=== PATIENT | male | born 2000 | race Caucasian/White ===

== ENCOUNTER 2024-03-03 15:27 | Emergency (ER) | payer BC, SELFPAY ==
[2024-03-03] MEDS ORDERED: LIDOCAINE 2% MPF 5 ML VIAL ONE (15:51)
[2024-03-03] MEDS ORDERED: LIDOCAINE 2% W/EPI 1:200,000 MPF 20 ML VIAL IM ONE (15:53)
[2024-03-03] MEDS ORDERED: MORPHINE 4 MG/ML SYR ONE (16:44)
--- NOTE | 2024-03-03 17:17 | RAD REPORT ---
EXAM DESCRIPTION: RAD - Forearm Right - 03/03/2024 4:46 pm CLINICAL HISTORY: injury, laceration COMPARISON: No comparisons TECHNIQUE: Right forearm, 2 views. FINDINGS: No fracture is identified. There is no dislocation or periosteal reaction noted. No foreign body or other soft tissue abnormality. Soft tissue irregularity along the dorsum of the proximal to mid forearm. IMPRESSION: Soft tissue irregularities suggesting laceration along the dorsum of the proximal to mid forearm. No acute osseous abnormality.
--- NOTE | 2024-03-03 17:50 | ER ---
Nurse's Notes [facility] Name: Giorgio Bello Age: 23 yrs Sex: Male : 2000 Arrival Date: 03/03/2024 Time: 15:27 Bed 18 Private MD: Diagnosis: Laceration without foreign body of right forearm Presentation: 03/03 15:22 Chief complaint: Chief complaint: EMS states: LACERATION TO RIGHT ARM AFTER CATCHING IT db ON BARBED WIRE WHILE WORKING AT THE [employer]. GIVEN 1 GM IV ACETAMINOPHEN. 15:22 Coronavirus screen: Client denies travel out of the [place] in the last 14 days. At this db time, the client does not indicate any symptoms associated with coronavirus-19. Ebola Screen: Patient negative for fever greater than or equal to 101.5 degrees Fahrenheit, and additional compatible Ebola Virus Disease symptoms Patient denies exposure to infectious person. Patient denies travel to an Ebola-affected area in the 21 days before illness onset. No symptoms or risks identified at this time. Initial Sepsis Screen: Does the patient meet any 2 criteria? No. Patient's initial sepsis screen is negative. Does the patient have a suspected source of infection? No. Patient's initial sepsis screen is negative. Risk Assessment: Do you want to hurt yourself or someone else? Patient reports no desire to harm self or others. Onset of symptoms was March 03, 2024. Care prior to arrival: IV initiated. 18 GA, in the left antecubital area, Glucose check: 132. 15:22 Method Of Arrival: EMS: [facility] db 15:22 Acuity: JAIRO 3 db Triage Assessment: 15:22 Pain: Complains of pain in right arm. Neuro: Level of Consciousness is awake, alert, db obeys commands, Oriented to person, place, time, situation. Respiratory: Airway is patent Respiratory effort is even, unlabored, Respiratory pattern is regular, symmetrical. Injury Description: Laceration sustained to right arm. 15:44 General: Appears in no apparent distress. comfortable, Behavior is calm, cooperative. db Historical: - Allergies: 15:44 Codeine; db 15:44 PENICILLINS; db - PMHx: 15:44 None; db - Immunization history:: Adult Immunizations unknown. - Infectious Disease History:: Denies. - Social history:: Smoking status: Reported history of juuling and/or vaping. Screenin:01 [facility] ED Fall Risk Assessment (Adult) History of falling in the last 3 months, db including since admission No falls in past 3 months (0 pts) Confusion or Disorientation No (0 pts) Intoxicated or Sedated No (0 pts) Impaired Gait No (0 pts) Mobility Assist Device Used No (0 pt) Altered Elimination No (0 pt) Score/Fall Risk Level 0 - 2 = Low Risk Oriented to surroundings, Maintained a safe environment. Abuse screen: Denies threats or abuse. Denies injuries from another. Nutritional screening: No deficits noted. Tuberculosis screening: No symptoms or risk factors identified. Assessment: 16:00 Reassessment: Patient appears in no apparent distress at this time. Patient and/or db family updated on plan of care and expected duration. Pain level reassessed. Patient is alert, oriented x 3, equal unlabored respirations, skin warm/dry/pink. VISITORS AT PATIENT BEDSIDE. General: Appears in no apparent distress. comfortable, Behavior is calm, cooperative. Pain: Complains of pain in right arm. Neuro: Level of Consciousness is awake, alert, obeys commands, Oriented to person, place, time, situation. Respiratory: Airway is patent Respiratory effort is even, unlabored, Respiratory pattern is regular, symmetrical. 18:18 Reassessment: Patient appears in no apparent distress at this time. Patient and/or db family updated on plan of care and expected duration. Pain level reassessed. Patient is alert, oriented x 3, equal unlabored respirations, skin warm/dry/pink. Reassessment: Patient states feeling better. Patient states symptoms have improved. General: Appears in no apparent distress. comfortable, Behavior is calm, cooperative. Vital Signs: 15:22 BP 114 / 66; Pulse 72; Resp 16; Temp 98.8(O); Pulse Ox 96% ; Weight 106.59 kg; Height 5 db ft. 10 in. ; 16:00 BP 123 / 59; Pulse 78; Resp 16; Pulse Ox 100% on R/A; db 17:30 BP 113 / 57; Pulse 77; Resp 16; Pulse Ox 98% on R/A; db 15:22 Body Mass Index 33.72 (106.59 kg, 177.8 cm) ED Course: 15:22 Arm band placed on Patient placed in an exam room. db 15:31 Patient arrived in ED. db 15:35 Malik Jaime PA is PHCP. cp 15:35 Malik Parkinson MD is Attending Physician. cp 15:42 Rhianna Huitron, BIPIN is Primary Nurse. db 15:44 Triage completed. db 16:10 Maintain EMS IV. Dressing intact. Good blood return noted. Site clean \T\ dry. Gauge \T\ db site: 20 G LAC. 16:48 XRAY Forearm RIGHT In Process Unspecified. EDMS 18:17 Patient has correct armband on for positive identification. Bed in low position. Call db light in reach. Side rails up X 1. Provided Education on: DISCHARGE AND FOLLOWUP. Pulse ox on. NIBP on. Warm blanket given. Pillow given. 18:17 No provider procedures requiring assistance completed. IV discontinued, intact, db bleeding controlled, No redness/swelling at site. 18:18 Dressings: Kerlix non-adherent dressing x 1 right arm x 2 right arm 4X4s. Irrigation on db right arm. Administered Medications: 16:00 Drug: Lidocaine Infiltration (2 %) 10 ml 5 ml Infiltration once; with epinephrine db {Note: GIVEN BY PROVIDER.} Volume: 5 ml; Route: Infiltration; 18:16 Follow up: Response: No adverse reaction db 16:48 Drug: morphine IVP or IV 4 mg IVP once over 4 mins Route: IVP; Infused Over: 4 mins; db Site: left antecubital; 18:16 Follow up: Response: No adverse reaction db 17:55 Drug: Cephalexin PO 500 mg PO once Route: PO; db 18:16 Follow up: Response: No adverse reaction db 17:55 Drug: HYDROcodone-acetaminophen PO 5 mg-325 mg 1 tabs PO once Route: PO; db 18:16 Follow up: Response: No adverse reaction db 17:55 Drug: Ibuprofen PO 800 mg PO once Route: PO; db 18:16 Follow up: Response: No adverse reaction db Medication: 18:17 VIS not applicable for this client. db Outcome: 17:49 Discharge ordered by . cp 18:17 Discharged to home ambulatory, with family, db 18:17 Condition: stable 18:17 Discharge instructions given to patient, Instructed on discharge instructions, follow up and referral plans. Prescriptions given X 3, 18:19 Patient left the ED. db Signatures: [facility] Malik Jaime PA PA cp Benton, Danielle, RN RN db Corrections: (The following items were deleted from the chart) 15:44 15:22 Chief complaint: db db
--- NOTE | 2024-03-03 17:50 | EDPHYS ---
Physician Documentation [facility] Name: Giorgio Bello Age: 23 yrs Sex: Male : 2000 Arrival Date: 03/03/2024 Time: 15:27 Bed 18 Private MD: ED Physician Malik Parkinson HPI: 03/03 15:45 This 23 yrs old Male presents to ER via EMS with complaints of Laceration To Arm. cp 15:45 The patient has a laceration occurred at work, and slip and fall with right forearm cp falling into razor wire. 15:45 The laceration(s) is(are) located on the right forearm. Onset: The symptoms/episode cp began/occurred just prior to arrival. Associated signs and symptoms: The patient has no apparent associated signs or symptoms. Historical: - Allergies: 15:44 Codeine; db 15:44 PENICILLINS; db - PMHx: 15:44 None; db - Immunization history:: Adult Immunizations unknown. - Infectious Disease History:: Denies. - Social history:: Smoking status: Reported history of juuling and/or vaping. ROS: 15:50 MS/extremity: Positive for laceration, of the right forearm, Negative for paresthesias, cp 15:50 Constitutional: Negative for body aches, chills, fever, cp 15:50 Neck: Negative for pain with movement, pain at rest, 15:50 Cardiovascular: Negative for chest pain, 15:50 Respiratory: Negative for cough, shortness of breath, wheezing, 15:50 Abdomen/GI: Negative for abdominal pain, vomiting, diarrhea, constipation, 15:50 Neuro: Negative for altered mental status, headache, weakness, 15:50 All other systems are negative, Exam: 15:55 Constitutional: The patient appears in no acute distress, alert, awake, non-toxic, well cp developed, well nourished, uncomfortable, 15:55 Head/Face: Normocephalic, atraumatic. cp 15:55 Chest/axilla: Inspection: normal, 15:55 Cardiovascular: Rate: normal, Rhythm: regular, Pulses: Pulses are 2+ in right radial artery. 15:55 Respiratory: the patient does not display signs of respiratory distress, Respirations: normal, no use of accessory muscles, no retractions, labored breathing, is not present, Breath sounds: are clear throughout, no decreased breath sounds, no stridor, no wheezing, 15:55 Abdomen/GI: Inspection: abdomen appears normal, 15:55 Musculoskeletal/extremity: Extremities: grossly normal except: noted in the right forearm: laceration, pain, tenderness, 15:55 Neuro: Orientation: to person, place \T\ time. Mentation: is normal, Vital Signs: 15:22 BP 114 / 66; Pulse 72; Resp 16; Temp 98.8(O); Pulse Ox 96% ; Weight 106.59 kg; Height 5 db ft. 10 in. ; 16:00 BP 123 / 59; Pulse 78; Resp 16; Pulse Ox 100% on R/A; db 17:30 BP 113 / 57; Pulse 77; Resp 16; Pulse Ox 98% on R/A; db 15:22 Body Mass Index 33.72 (106.59 kg, 177.8 cm) db Laceration: 17:46 Wound Repair of 14cm ( 5.5in ) subcutaneous laceration to dorsum of right forearm. cp Linear shaped.. Distal neuro/vascular/tendon intact. Anesthesia: Wound infiltrated with 18 mls of 2% lidocaine. Wound prep: Moderate cleansing by me, Wound irrigation by me. Skin closed with 24 1-0 Albin using staple gun. Fascia closed with 1 4-0 Vicryl using running sutures. Dressed with Bacitracin, 4x4's. Patient tolerated well. MDM: 15:35 Patient medically screened. cp 16:00 Differential diagnosis: superficial laceration, tendon injury, vascular injury. 17:48 Data reviewed: vital signs, nurses notes, radiologic studies, plain films, and as a result, I will discharge patient. 17:48 I considered the following discharge prescriptions or medication management in the emergency department Medications were administered in the Emergency Department. See MAR. Counseling: I had a detailed discussion with the patient and/or guardian regarding the historical points, exam findings, and any diagnostic results supporting the discharge/admit diagnosis, radiology results, the need for outpatient follow up, a family practitioner, to return to the emergency department if symptoms worsen or persist or if there are any questions or concerns that arise at home. Response to treatment: the patient's symptoms have markedly improved after treatment, and as a result, I will discharge patient. 03/03 15:44 Order name: XRAY Forearm RIGHT; Complete Time: 17:45 cp 03/03 17:45 Interpretation: Reviewed. cp 03/03 15:44 Order name: Wound Care; Complete Time: 17:54 cp Administered Medications: 16:00 Drug: Lidocaine Infiltration (2 %) 10 ml 5 ml Infiltration once; with epinephrine db {Note: GIVEN BY PROVIDER.} Volume: 5 ml; Route: Infiltration; 18:16 Follow up: Response: No adverse reaction db 16:48 Drug: morphine IVP or IV 4 mg IVP once over 4 mins Route: IVP; Infused Over: 4 mins; db Site: left antecubital; 18:16 Follow up: Response: No adverse reaction db 17:55 Drug: Cephalexin PO 500 mg PO once Route: PO; db 18:16 Follow up: Response: No adverse reaction db 17:55 Drug: HYDROcodone-acetaminophen PO 5 mg-325 mg 1 tabs PO once Route: PO; db 18:16 Follow up: Response: No adverse reaction db 17:55 Drug: Ibuprofen PO 800 mg PO once Route: PO; db 18:16 Follow up: Response: No adverse reaction db Disposition Summary: 03/03/24 17:49 Discharge Ordered Notes: Location: Home cp Problem: new cp Symptoms: have improved cp Condition: Stable cp Diagnosis - Laceration without foreign body of right forearm cp Followup: cp - With: Private Physician - When: 10 - 14 days - Reason: Staple/Suture removal Discharge Instructions: - Discharge Summary Sheet cp - Laceration Care, Adult cp Forms: - Work release form bd - Medication Reconciliation Form cp - Antibiotic Education cp - Prescription Opioid Use cp - Patient Portal Instructions cp - Leadership Thank You Letter cp Prescriptions: - Cephalexin 500 mg Oral Capsule - take 1 capsule ORAL route every 8 hours for 10 days; 30 capsule; Refills: 0, cp Product Selection Permitted - Ibuprofen 800 mg Oral Tablet - take 1 tablet ORAL route every 8 hours As needed take with food; 30 tablet; cp Refills: 0, Product Selection Permitted - Tramadol 50 mg Oral Tablet - take 1 tablet ORAL route every 8 hours as needed; 12 tablet; Refills: 0, cp Product Selection Permitted Addendum: 03/07/2024 05:06 Co-signature as Attending Physician, Malik Parkinson MD I agree with the assessment and c tinajero plan of care. Signatures: Dispatcher [employer] EDMS Iggy, Malik, Malik Flores MD, cha, PA PA cp Benton, Danielle, RN RN db
[2024-03-03] MEDS ORDERED: CEPHALEXIN 250 MG CAP ONE (17:56)
[2024-03-03] MEDS ORDERED: IBUPROFEN 400 MG TAB ONE (17:57)
[2024-03-03] MEDS ORDERED: HYDROCODONE/APAP 5/325 MG TAB ONE (17:57)
[2024-03-05 17:43] VITALS: BP 113/57; O2SAT 98
== END 2024-03-03 18:19 | disposition home or self-care (01) ==
LOC: ER 15:27
PROC: 0JQG3ZZ Repair Right Lower Arm Subcutaneous Tissue and Fascia, Percutaneous Approach (ICD-10-PCS; principal; 2024-03-03)
DX: S51.811A Laceration without foreign body of right forearm, initial encounter (principal); W01.118A Fall on same level from slipping, tripping and stumbling with subsequent striking against other sharp object, initial encounter; Y99.0 Civilian activity done for income or pay; Z88.0 Allergy status to penicillin; Z88.5 Allergy status to narcotic agent
CPT/HCPCS: 96374; 99284; J2001